=== PATIENT | female | born 1950 | race Caucasian/White ===

== ENCOUNTER → 2017-09-03 09:55 | Outpatient (CLI) | payer MEDICARE | END | disposition home or self-care (01) | LOC: D.MRI 08-27 14:00 | DX: M75.121 Complete rotator cuff tear or rupture of right shoulder, not specified as traumatic (principal); X58.XXXA Exposure to other specified factors, initial encounter; Y93.9 Activity, unspecified; Y92.9 Unspecified place or not applicable ==

== ENCOUNTER 2017-10-26 08:51 | Day surgery (SDC) | payer MEDICARE ==
[~2017-10-26] VITALS: Ht 167.6 cm; Wt 144.2 kg
--- NOTE | ~2017-10-26 | OP ---
PATIENT NAME: KACI VALDES MEDICAL RECORD: [id number] :54 LOCATION:[facility] ADMISSION DATE: SURGEON: MK CAMARGO MD DATE OF OPERATION: 10/26/2017 PREOPERATIVE DIAGNOSES: 1. Recurrent impingement syndrome of the right shoulder with acromioclavicular joint pain. 2. Carpal tunnel syndrome. POSTOPERATIVE DIAGNOSES: 1. Recurrent impingement syndrome of the right shoulder with acromioclavicular joint pain. 2. Carpal tunnel syndrome. PROCEDURES: 1. Arthroscopic distal clavicle excision done through separate incision -- 1 cm. 2. Arthroscopic subacromial decompression, acromioplasty and bursectomy. 3. Carpal tunnel release. All of the above were done on the right upper extremity. SURGEON: Mk Camargo MD ANESTHESIA: General. INTRAOPERATIVE COMPLICATIONS: None. 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 Lastly, the patient's rotator cuff was intact. He has had substantial amount of attritional changes, but at no point could I see or find a full thickness rotator cuff tearing from the medial articular side or the nonarticular side. The patient previously had a biceps tenotomy. OPERATIVE SUMMARY IN DETAIL: After obtaining the appropriate preoperative orthopedic surgery consent as well as anesthetic consultation, evaluation and clearance, the patient was brought to the operating room and placed on the operating table in supine position. After general laryngeal mask airway was administered, the patient was placed in a left lateral decubitus position. All pressure points were well padded to include down leg peroneal pad as well as axillary roll. The patient was held firmly to the operating table using the vacuum pack suction system. Right upper extremity and shoulder were then prepped and draped in routine sterile fashion. The arm was held in the Arthrex traction boom with 30 degrees of forward flexion, 30 degrees of abduction, and 10 pounds of traction laterally. Arthroscopy was established in the glenohumeral joint and posterior portal. Anterior portal was established in the anterior safe interval. Diagnostic arthroscopy revealed the above findings. Attention was turned to the subacromial space. Accessory lateral portal was created in 2 places. This patient has a very large shoulder and through this 2 accessory lateral portal, substantial subacromial decompression and takedown of multiple adhesions was required. This was all done with the large arthroscopic resector. Having completely freed the subacromial space up, a more robust subacromial decompression was performed allowing for much more space for the OPERATIVE REPORT [id number] KACI VALDES rotator cuff to articulate. Attention was then turned to the distal clavicle. The distal clavicle had some areas where the inferior osteophytes had been taken down. At this point, the residual of the distal clavicle was taken down with a 5.0 barrel bur. Having completed this, arthroscopy portals were closed in routine interrupted fashion using 4-0 Prolene. Sterile dressings were applied. The patient's bow Arthrex sleeve was taken down. An Esmarch bandage was used as a tourniquet to exsanguinate the wrist and forearm. This was left in place while an incision was made in line with the fourth metacarpal taken down on the transverse metacarpal ligament. This was visualized and evaluated gently incised and the patient did have recurrent compression across the entire transverse carpal ligament. With the freer in place, the transverse carpal ligament was incised in its entirety under direct visualization. Having completed this, the wound was irrigated and closed with 4-0 Prolene. Sterile dressings were applied. The patient was awakened and taken to the recovery room in stable condition. All final needle and sponge counts were correct. TRANSINT:[id number] Voice Confirmation ID: [id number] DOCUMENT ID: [id number] MARY JO ARMAS, MK ARRINGTON at 1856 CC: [id number] DICTATION DATE: 10/26/17 1451 ART CRITIC: 10/26/17 1526 [facility] [address] [place] [address]
[~2017-10-26 08:51] MED LIST: ALTACE10 MG PO; COREG25 MG PO; IBUPROFEN800 MG PO; NIFEDIPINE ER60 MG PO; SYNTHROID175 MCG PO
[2017-10-26 09:27] LABS: HEMATOCRIT 39.4 % (36.0-48.0); HEMOGLOBIN 13.1 g/dL (12-16); MCH 28.5 pg (26.0-34.0); MCHC 33.2 g/dL (31.0-37.0); MCV 85.7 fL (80.0-100.0); MEAN PLATELET VOLUME 10.8 fL (7.4-10.4); RBC 4.6 10x6/uL (4.00-5.40); RDW 13.7 % (11.5-14.5); WBC 10.3 10x3/uL (4.8-10.8)
[2017-10-26 09:34] LABS: CALC OSMOLALITY 283 mosm/kg (275-300); CALCIUM 8.9 mg/dL (8.5-10.1); CARBON DIOXIDE 29.9 mmol/L (21.0-32.0); CHLORIDE - SERUM 104 mmol/L (98-107); CREATININE - SERUM 0.8 mg/dL (0.6-1.3); GLUCOSE 218 mg/dL (74-106); POTASSIUM - SERUM 3.9 mmol/L (3.5-5.1); SODIUM 139 mmol/L (136-145); UREA NITROGEN 11 mg/dL (7-18); eGFR NON AFRICAN AMERICAN 76 mL/min (90-120)
[2017-10-26 10:34] VITALS: BP 159/69; Ht 167.6 cm; Wt 144.2 kg
== END 2017-10-26 17:30 | disposition home or self-care (01) ==
LOC: D.OPS 08:51 → D.PAN 09:30 → D.OPS 10:50
PROVIDERS: Anesthesiology
DX: M75.41 Impingement syndrome of right shoulder (principal); G56.01 Carpal tunnel syndrome, right upper limb; Z01.812 Encounter for preprocedural laboratory examination